=== PATIENT | female | born 1935 | race Caucasian/White ===

== ENCOUNTER 2019-12-08 10:25 | Inpatient (IN) | payer MEDICARE, BC ==
[~2019-12-08] VITALS: Ht 170.2 cm; Wt 80.0 kg
[2019-12-08] VITALS (16 sets, daily range): BP systolic 103–145; BP diastolic 52–96
[~2019-12-08 10:25] MED LIST: CA C1TAB69 PO; CALC-723 PO; CINN500C7 PO; CYCL1DRO6 EACHEYE; DIGO125T PO; ESOM40CA PO; FLAX1CAP4 PO; LEVO100T46 PO; LOP25T PO; PRED10TA23 PO; RESV250C2 PO; RIVA20TA2 PO; VITA1TAB20 PO; VITC500T PO
[2019-12-08] MEDS ORDERED: normal saline 1000ml 1,000 ML IV ONE (11:42)
[2019-12-08] MEDS ORDERED: APIX5TAB3 PO (11:53)
[2019-12-08] MEDS ORDERED: FURO-149 PO (12:02)
[2019-12-08] MEDS ORDERED: ATOR40TA PO (12:02)
[2019-12-08] MEDS ORDERED: POTA20TA19 PO (12:02)
[2019-12-08 12:05] LABS: CLARITY,URINE SLIGHTLY CLOUDY (Clear); COLOR,URINE YELLOW (Yellow); GLUCOSE, URINE NEGATIVE (Neg); KETONES,URINE NEGATIVE (Neg); LEUKOCYTE ESTERASE ,URINE TRACE (Neg); NITRITES, URINE NEGATIVE (Neg); OCCULT BLOOD,URINE TRACE-INTACT (Neg); PROTEIN,URINE NEGATIVE (Neg); UROBILINOGEN,URINE 0.2 E.U/dL (0.2-1.0)
[2019-12-08 12:05] LABS: BASOPHILS % (AUTO) 0.4 % (0-1); EOSINOPHILS # (AUTO) 0.2 X10'3 (0-0.9); EOSINOPHILS % (AUTO) 2.4 % (0-6); HEMATOCRIT 43.7 % (35.0-45.0); HEMOGLOBIN 14.7 g/dl (12.0-16.0); LYMPHOCYTES # (AUTO) 1.2 X10'3 (1.1-4.8); LYMPHOCYTES % (AUTO) 18.5 % (21-51); MEAN CORPUSCULAR HEMOGLOBIN 34.2 PG (27.0-31.0); MEAN CORPUSCULAR HGB CONC 33.7 g/dL (33.0-36.5); MEAN CORPUSCULAR VOLUME 101.7 FL (78-98); MONOCYTES # (AUTO) 0.6 X10'3 (0-0.9); MONOCYTES % (AUTO) 9.4 % (2-12); NEUTROPHILS # (AUTO) 4.4 X10'3 (1.8-7.7); NEUTROPHILS % (AUTO) 69.3 % (42-75); PLATELET COUNT 149 X10'3 (140-440); RED CELL DISTRIBUTION WIDTH 13.9 % (11.5-14.5); WHITE BLOOD COUNT 6.4 X10'3 (4.5-11.0)
[2019-12-08 12:07] LABS: UA COLLECTION TYPE CLN CATCH MIDSTREAM
[2019-12-08 12:12] LABS: MUCUS STRANDS FEW /LPF (Neg)
[2019-12-08 12:14] LABS: BACTERIA,URINE 1+ /HPF (Neg); SQUAMOUS EPITHELIAL CELL,UR MODERATE /LPF (FEW); WBC CLUMPS,URINE FEW /HPF (NEGATIVE)
[2019-12-08 12:14] LABS: PARTIAL THROMBOPLASTIN TIME 30 SECONDS (22-32)
[2019-12-08] MEDS ORDERED: CHOL100025 PO (12:15)
[2019-12-08] MEDS ORDERED: MAGN400C PO (12:15)
[2019-12-08] MEDS ORDERED: MULT-1074 PO (12:15)
[2019-12-08 12:16] LABS: ALANINE AMINOTRANSFERASE 26 U/L (12-78); ALBUMIN 3.7 G/DL (3.4-5.0); ALBUMIN/GLOBULIN RATIO 1.1 (1.1-1.5); ALKALINE PHOSPHATASE 94 IU/L (46-116); ANION GAP 9 (8-16); ASPARTATE AMINO TRANSFERASE 27 U/L (10-37); BILIRUBIN,TOTAL 0.7 MG/DL (0.1-1.0); BLOOD UREA NITROGEN 27 MG/DL (7-18); BUN/CREATININE RATIO 26.7 (6.6-38.0); CHLORIDE 107 MMOL/L (99-107); CREATININE 1.01 MG/DL (0.40-0.90); GLUCOSE 104 MG/DL (70-104); POTASSIUM 4.5 MMOL/L (3.5-5.1); SODIUM 143 MMOL/L (135-145); TOTAL PROTEIN 7.1 G/DL (6.4-8.2); eGFR 52 ML/MIN
[2019-12-08] MEDS ORDERED: ondansetron/PF 4mg/2ml inj IV PRN (13:50)
[2019-12-08] MEDS ORDERED: potassium Cl 20 mEq SR tablet PO PRN ×2 (13:50)
[2019-12-08] MEDS ORDERED: HYDROcodone/acetaminophen 5mg/325mg tablet PO PRN (13:50)
[2019-12-08] MEDS ORDERED: HYDROcodone/acetaminophen 10/325mg tab PO PRN (13:50)
[2019-12-08] MEDS ORDERED: diphenhydrAMINE 25mg capsule PO PRN (13:50)
[2019-12-08] MEDS ORDERED: potassium CL 10mEq/100ml bag 100 ML IV PRN ×2 (13:50)
[2019-12-08] MEDS ORDERED: magnesium 2GM in 50ml NS 50 ML IV PRN (13:50)
[2019-12-08] MEDS ORDERED: magnesium 4gm in 100ml NS 100 ML IV PRN (13:50)
[2019-12-08] MEDS ORDERED: acetaminophen 325mg tablet PO PRN ×2 (13:50)
[2019-12-08] MEDS ORDERED: magnesium Cl slow-release 64mg tablet PO PRN (13:50)
[2019-12-08] MEDS ORDERED: magnesium hydroxide 30ml (MOM) UD suspension PO PRN (13:50)
[2019-12-08] MEDS ORDERED: morphine 2 MG/ML inj. syringe IV PRN ×2 (13:50)
[2019-12-08] MEDS ORDERED: ipratropium/albuterol 3ml nebule NEB PRN (13:50)
[2019-12-08] MEDS ORDERED: acetaminophen 650mg rectal suppository RC PRN (13:50)
[2019-12-08] MEDS ORDERED: mag hydrox/Alum hydrox/simeth 30ml oral suspension PO PRN (13:50)
[2019-12-08] MEDS ORDERED: bisacodyl 10mg suppository rectal RC PRN (13:50)
[2019-12-08] MEDS ORDERED: iohexol 350MG/ML 100ml bottle IV ONE (14:00)
[2019-12-08] MEDS: ipratropium/albuterol 3ml nebule NEB SCH ×2 (14:00→20:49)
[2019-12-08 14:30] LABS: HEMOGLOBIN A1C 6.3 % (4.5-6.2)
[2019-12-08] MEDS: normal saline 1000ml 1,000 ML IV SCH (14:35)
[2019-12-08] MEDS: levoFLOXACIN-Levaquin 750MG/D5 150 ML IV SCH (14:35)
[2019-12-08] MEDS ORDERED: midazolam 2 mg/2 ml injection ONE (14:42)
[2019-12-08] MEDS ORDERED: fentaNYL/PF 50MCG/1 ML 2ML syringe ONE (14:43)
--- NOTE | 2019-12-08 15:45 | NUR ---
Patient arrived on unit, was able to ambulate to bed with minimal assitance. Chest tube hooked up to suction at 20 per order. Chest tube dressing clean, dry and intact in left chest. VSS except HR 130s/140s, patient on 2L NC, alert and oriented, at bedside. Will continue to monitor
[2019-12-08] MEDS ORDERED: diltiazem 5mg/ml 5ml inj. IV ONE (16:00)
[2019-12-08] MEDS: diltiazem-NS 100mg/100ml 100 ML IV SCH (16:53)
--- NOTE | 2019-12-08 18:19 | NUR ---
Problems reprioritized. Patient report given, questions answered & plan of care reviewed with NEIL Jesus.
[2019-12-08] MEDS: K and/or MAG REPLACEMENT MC SCH (20:00)
[2019-12-08] MEDS: cycloSPORINE 0.05% ophthalmic emulsion EACHEYE SCH (20:29)
[2019-12-08] MEDS: metoprolol tartrate 25mg tablet PO SCH (20:31)
[2019-12-08] MEDS: furosemide 40mg tablet PO SCH (20:31)
[2019-12-08] MEDS ORDERED: temazepam 15mg capsule PO PRN (21:00)
[2019-12-09] VITALS (13 sets, daily range): BP systolic 92–140; BP diastolic 44–83
[2019-12-09] MEDS: ipratropium/albuterol 3ml nebule NEB SCH ×4 (02:00→20:36)
[2019-12-09 05:22] LABS: BASOPHILS % (AUTO) 0.3 % (0-1); EOSINOPHILS # (AUTO) 0.1 X10'3 (0-0.9); EOSINOPHILS % (AUTO) 1.6 % (0-6); HEMATOCRIT 41.2 % (35.0-45.0); HEMOGLOBIN 13.8 g/dl (12.0-16.0); LYMPHOCYTES # (AUTO) 1.2 X10'3 (1.1-4.8); LYMPHOCYTES % (AUTO) 18.1 % (21-51); MEAN CORPUSCULAR HEMOGLOBIN 33.8 PG (27.0-31.0); MEAN CORPUSCULAR HGB CONC 33.4 g/dL (33.0-36.5); MEAN CORPUSCULAR VOLUME 101.3 FL (78-98); MEAN PLATELET VOLUME 8.6 FL (7.4-10.4); MONOCYTES # (AUTO) 0.6 X10'3 (0-0.9); MONOCYTES % (AUTO) 9.1 % (2-12); NEUTROPHILS # (AUTO) 4.8 X10'3 (1.8-7.7); NEUTROPHILS % (AUTO) 70.9 % (42-75); PLATELET COUNT 146 X10'3 (140-440); RED BLOOD COUNT 4.07 X10'6 (4.20-5.60); RED CELL DISTRIBUTION WIDTH 14.3 % (11.5-14.5); WHITE BLOOD COUNT 6.8 X10'3 (4.5-11.0)
[2019-12-09 05:31] LABS: ALANINE AMINOTRANSFERASE 18 U/L (12-78); ALBUMIN 3.3 G/DL (3.4-5.0); ALKALINE PHOSPHATASE 82 IU/L (46-116); ANION GAP 7 (8-16); ASPARTATE AMINO TRANSFERASE 24 U/L (10-37); BILIRUBIN,TOTAL 0.7 MG/DL (0.1-1.0); BLOOD UREA NITROGEN 22 MG/DL (7-18); BUN/CREATININE RATIO 23.4 (6.6-38.0); CALCIUM 8.8 MG/DL (8.5-10.1); CHLORIDE 108 MMOL/L (99-107); CHOL/HDL RATIO 2.4 (0.00-4.99); CHOLESTEROL 121 MG/DL (0-200); CREATININE 0.94 MG/DL (0.40-0.90); GLUCOSE 95 MG/DL (70-104); HDL CHOLESTEROL 50 MG/DL (35-60); LDL CHOLESTEROL 65 MG/DL (50-100); PHOSPHORUS 3.9 MG/DL (2.3-4.5); POTASSIUM 3.8 MMOL/L (3.5-5.1); SODIUM 142 MMOL/L (135-145); TOTAL CARBON DIOXIDE 26.6 MMOL/L (24-32); TOTAL PROTEIN 6.7 G/DL (6.4-8.2); TRIGLYCERIDES 61 MG/DL (20-135); eGFR 57 ML/MIN
--- NOTE | 2019-12-09 06:00 | NUR ---
Patient in room PCU 3014. I have received report from Ann Marie TREJO and had the opportunity to ask questions and assume patient care.
--- NOTE | 2019-12-09 06:30 | NUR ---
Problems reprioritized. Patient report given, questions answered & plan of care reviewed with Linda TREJO.
[2019-12-09] MEDS ORDERED: RESVERATROL 500 MG PO SCH (08:00)
[2019-12-09] MEDS: K and/or MAG REPLACEMENT MC SCH ×2 (08:00→19:07)
[2019-12-09] MEDS: levoFLOXACIN-Levaquin 750MG/D5 150 ML IV SCH (08:37)
[2019-12-09] MEDS: ascorbic acid 500mg tablet PO SCH (08:37)
[2019-12-09] MEDS: vitamin B comp w/Vit. C tab 1 TAB TABLET PO SCH (08:37)
[2019-12-09] MEDS: calcium carbonate/vitamin D3 tablet PO SCH (08:38)
[2019-12-09] MEDS: multivitamins, therapeutics tablet PO SCH (08:38)
[2019-12-09] MEDS: atorvastatin 20mg tablet PO SCH (08:38)
[2019-12-09] MEDS: furosemide 40mg tablet PO SCH ×2 (08:38→19:20)
[2019-12-09] MEDS: vitamin D (cholecalciferol) 1,000 unit tablet PO SCH (08:38)
[2019-12-09] MEDS: levoTHYROXINE 100mcg tablet PO SCH (08:39)
[2019-12-09] MEDS: metoprolol tartrate 25mg tablet PO SCH ×2 (08:40→19:20)
[2019-12-09] MEDS: cycloSPORINE 0.05% ophthalmic emulsion EACHEYE SCH ×2 (08:40→19:20)
[2019-12-09] MEDS: normal saline 1000ml 1,000 ML IV SCH (08:50)
[2019-12-09] MEDS: diltiazem-NS 100mg/100ml 100 ML IV SCH (09:04)
[2019-12-09] MEDS: apixaban 5mg tablet PO SCH ×2 (10:58→19:20)
--- NOTE | 2019-12-09 18:19 | NUR ---
Problems reprioritized. Patient report given, questions answered & plan of care reviewed with Ann Marie TREJO.
[2019-12-09] MEDS: lactobacillus rhamnosus 10,000 MMU CELLS/CAPSULE PO SCH (19:20)
[2019-12-09] MEDS: sacubitril/valsartan 24mg-26mg tablet PO SCH (19:21)
[2019-12-10] VITALS (15 sets, daily range): BP systolic 91–121; BP diastolic 37–79
[2019-12-10] MEDS: ipratropium/albuterol 3ml nebule NEB SCH ×4 (02:00→20:09)
[2019-12-10] MEDS: normal saline 1000ml 1,000 ML IV SCH (05:49)
--- NOTE | 2019-12-10 06:02 | NUR ---
Problems reprioritized. Patient report given, questions answered & plan of care reviewed with Linda TREJO.
--- NOTE | 2019-12-10 06:04 | NUR ---
Patient in room PCU 3014. I have received report from Ann Marie TREJO and had the opportunity to ask questions and assume patient care.
[2019-12-10 06:47] LABS: BASOPHILS % (AUTO) 0.5 % (0-1); EOSINOPHILS # (AUTO) 0.2 X10'3 (0-0.9); EOSINOPHILS % (AUTO) 3.3 % (0-6); HEMATOCRIT 40.8 % (35.0-45.0); HEMOGLOBIN 13.8 g/dl (12.0-16.0); LYMPHOCYTES % (AUTO) 16.8 % (21-51); MEAN CORPUSCULAR HEMOGLOBIN 34.3 PG (27.0-31.0); MEAN CORPUSCULAR HGB CONC 33.8 g/dL (33.0-36.5); MEAN CORPUSCULAR VOLUME 101.2 FL (78-98); MEAN PLATELET VOLUME 8.5 FL (7.4-10.4); MONOCYTES # (AUTO) 0.6 X10'3 (0-0.9); MONOCYTES % (AUTO) 10.2 % (2-12); NEUTROPHILS # (AUTO) 4.1 X10'3 (1.8-7.7); NEUTROPHILS % (AUTO) 69.2 % (42-75); PLATELET COUNT 140 X10'3 (140-440); RED BLOOD COUNT 4.03 X10'6 (4.20-5.60); RED CELL DISTRIBUTION WIDTH 13.9 % (11.5-14.5); WHITE BLOOD COUNT 5.9 X10'3 (4.5-11.0)
--- NOTE | 2019-12-10 06:55 | NUR ---
Clamped chest tube for 0900 CXR
[2019-12-10 07:07] LABS: ALANINE AMINOTRANSFERASE 22 U/L (12-78); ALBUMIN 3.3 G/DL (3.4-5.0); ALKALINE PHOSPHATASE 81 IU/L (46-116); ANION GAP 8 (8-16); ASPARTATE AMINO TRANSFERASE 22 U/L (10-37); BILIRUBIN,TOTAL 0.9 MG/DL (0.1-1.0); BLOOD UREA NITROGEN 20 MG/DL (7-18); BUN/CREATININE RATIO 21.5 (6.6-38.0); CALCIUM 8.2 MG/DL (8.5-10.1); CHLORIDE 109 MMOL/L (99-107); CREATININE 0.93 MG/DL (0.40-0.90); GLUCOSE 101 MG/DL (70-104); MAGNESIUM 1.8 MG/DL (1.5-2.4); POTASSIUM 3.6 MMOL/L (3.5-5.1); SODIUM 145 MMOL/L (135-145); TOTAL CARBON DIOXIDE 27.9 MMOL/L (24-32); TOTAL PROTEIN 6.5 G/DL (6.4-8.2); eGFR 58 ML/MIN
[2019-12-10] MEDS: sacubitril/valsartan 24mg-26mg tablet PO SCH ×2 (07:15→19:58)
[2019-12-10] MEDS: atorvastatin 20mg tablet PO SCH (07:16)
[2019-12-10] MEDS: apixaban 5mg tablet PO SCH ×2 (07:16→19:58)
[2019-12-10] MEDS: ascorbic acid 500mg tablet PO SCH (07:16)
[2019-12-10] MEDS: levoTHYROXINE 100mcg tablet PO SCH (07:16)
[2019-12-10] MEDS: vitamin D (cholecalciferol) 1,000 unit tablet PO SCH (07:16)
[2019-12-10] MEDS: furosemide 40mg tablet PO SCH ×2 (07:16→19:58)
[2019-12-10] MEDS: calcium carbonate/vitamin D3 tablet PO SCH (07:16)
[2019-12-10] MEDS: metoprolol tartrate 25mg tablet PO SCH ×2 (07:16→19:57)
[2019-12-10] MEDS: vitamin B comp w/Vit. C tab 1 TAB TABLET PO SCH (07:16)
[2019-12-10] MEDS: lactobacillus rhamnosus 10,000 MMU CELLS/CAPSULE PO SCH ×2 (07:16→19:58)
[2019-12-10] MEDS: multivitamins, therapeutics tablet PO SCH (07:16)
[2019-12-10] MEDS: cycloSPORINE 0.05% ophthalmic emulsion EACHEYE SCH ×2 (07:17→19:58)
[2019-12-10] MEDS: K and/or MAG REPLACEMENT MC SCH ×2 (07:22→20:04)
[2019-12-10] MEDS: diltiazem-NS 100mg/100ml 100 ML IV SCH (07:25)
[2019-12-10] MEDS ORDERED: levoFLOXACIN 750MG TABLET PO SCH (08:00)
--- NOTE | 2019-12-10 12:30 | NUR ---
Chest tube was removed by IR, clean dry dressing in place, no drainage noted in the container, will continue to monitor.
--- NOTE | 2019-12-10 18:22 | NUR ---
Patient in room PCU 3014. I have received report from Linda TREJO and had the opportunity to ask questions and assume patient care.
--- NOTE | 2019-12-10 18:51 | NUR ---
Problems reprioritized. Patient report given, questions answered & plan of care reviewed with Olman TREJO.
[2019-12-11] VITALS: BP 119/63
[2019-12-11] MEDS: normal saline 1000ml 1,000 ML IV SCH ×2 (01:49→07:31)
[2019-12-11 02:00] VITALS: BP 119/63
[2019-12-11] MEDS: ipratropium/albuterol 3ml nebule NEB SCH ×2 (03:04→06:52)
[2019-12-11 04:00] VITALS: BP 104/58
[2019-12-11] MEDS: diltiazem-NS 100mg/100ml 100 ML IV SCH (04:15)
[2019-12-11 06:00] VITALS: BP 114/49
--- NOTE | 2019-12-11 06:28 | NUR ---
Problems reprioritized. Patient report given, questions answered & plan of care reviewed with Linda TREJO.
[2019-12-11 06:38] LABS: BASOPHILS % (AUTO) 0.2 % (0-1); EOSINOPHILS # (AUTO) 0.3 X10'3 (0-0.9); EOSINOPHILS % (AUTO) 4.8 % (0-6); HEMOGLOBIN 13.7 g/dl (12.0-16.0); LYMPHOCYTES % (AUTO) 17.2 % (21-51); MEAN CORPUSCULAR HEMOGLOBIN 34.6 PG (27.0-31.0); MEAN CORPUSCULAR HGB CONC 34.2 g/dL (33.0-36.5); MEAN PLATELET VOLUME 8.3 FL (7.4-10.4); MONOCYTES # (AUTO) 0.6 X10'3 (0-0.9); MONOCYTES % (AUTO) 10.8 % (2-12); NEUTROPHILS # (AUTO) 3.9 X10'3 (1.8-7.7); PLATELET COUNT 142 X10'3 (140-440); RED BLOOD COUNT 3.96 X10'6 (4.20-5.60); RED CELL DISTRIBUTION WIDTH 14.2 % (11.5-14.5); WHITE BLOOD COUNT 5.8 X10'3 (4.5-11.0)
[2019-12-11 06:48] LABS: ALANINE AMINOTRANSFERASE 21 U/L (12-78); ALKALINE PHOSPHATASE 77 IU/L (46-116); ANION GAP 9 (8-16); ASPARTATE AMINO TRANSFERASE 21 U/L (10-37); BILIRUBIN,TOTAL 0.8 MG/DL (0.1-1.0); BLOOD UREA NITROGEN 15 MG/DL (7-18); BUN/CREATININE RATIO 18.8 (6.6-38.0); CALCIUM 8.1 MG/DL (8.5-10.1); CHLORIDE 110 MMOL/L (99-107); GLUCOSE 101 MG/DL (70-104); MAGNESIUM 1.7 MG/DL (1.5-2.4); PHOSPHORUS 3.9 MG/DL (2.3-4.5); POTASSIUM 3.3 MMOL/L (3.5-5.1); SODIUM 144 MMOL/L (135-145); TOTAL CARBON DIOXIDE 25.3 MMOL/L (24-32); TOTAL PROTEIN 6.1 G/DL (6.4-8.2); eGFR 69 ML/MIN
[2019-12-11] MEDS: levoTHYROXINE 100mcg tablet PO SCH (07:24)
[2019-12-11] MEDS: vitamin D (cholecalciferol) 1,000 unit tablet PO SCH (07:25)
[2019-12-11] MEDS: ascorbic acid 500mg tablet PO SCH (07:25)
[2019-12-11] MEDS: sacubitril/valsartan 24mg-26mg tablet PO SCH (07:25)
[2019-12-11] MEDS: calcium carbonate/vitamin D3 tablet PO SCH (07:26)
[2019-12-11] MEDS: lactobacillus rhamnosus 10,000 MMU CELLS/CAPSULE PO SCH (07:26)
[2019-12-11] MEDS: apixaban 5mg tablet PO SCH (07:26)
[2019-12-11] MEDS: cycloSPORINE 0.05% ophthalmic emulsion EACHEYE SCH (07:26)
[2019-12-11] MEDS: multivitamins, therapeutics tablet PO SCH (07:26)
[2019-12-11] MEDS: furosemide 40mg tablet PO SCH (07:26)
[2019-12-11] MEDS: atorvastatin 20mg tablet PO SCH (07:26)
[2019-12-11] MEDS: metoprolol tartrate 25mg tablet PO SCH (07:26)
[2019-12-11] MEDS: vitamin B comp w/Vit. C tab 1 TAB TABLET PO SCH (07:26)
[2019-12-11] MEDS: K and/or MAG REPLACEMENT MC SCH (07:38)
[2019-12-11] MEDS ORDERED: levoFLOXACIN 750MG TABLET PO SCH (08:00)
[2019-12-11 11:00] VITALS: BP 89/52
[2019-12-11 11:30] LABS: ABG BASE EXCESS 1.9 mmol/L (-2.0-3.0); ABG HCO3 24.8 mmol/L (22.0-26.0); ABG PCO2 (T) 33.8 mmHg (35.0-45.0); ABG PH (T) 7.483 (7.350-7.450); ABG PO2 (T) 67.7 mmHg (83-108); ALLEN'S TEST POSITIVE; FCOHb 0.7 % (0.5-1.5); FMetHb 0.2 % (0.3-1.12); FO2Hb 93.2 % (94-100); TOTAL HEMOGLOBIN 14.4 G/dl (12.0-16.0)
--- NOTE | 2019-12-11 11:38 | NUR ---
promotional table spacer PAGER ID: [phone] MESSAGE: [id number], Juan Nascimento results in. RT recommends pt. go home with incentive spirometer. Eze 1215
[2019-12-11] MEDS ORDERED: SACU1TAB PO (12:11)
[2019-12-11] MEDS ORDERED: LEVO750T46 PO (12:11)
--- NOTE | 2019-12-11 14:20 | NUR ---
Per MD orders, patient clear for discharge home. New prescriptions called in to pharmacy of preference. Discharge packet reviewed with patient and at bedside and all questions answered to patient satisfaction. Discontinued mobil monitoring. Discontinued PIV, cannula intact. Transferred to private vehicle via wheelchair accompanied by aide and . Pt. states she will call to make her own appt.
--- NOTE | 2019-12-14 14:34 | NUR ---
Case Management DC follow up: spoke to pt via telephone. Reports "feeling better" "last night (12/13/19) sleepong on my back, felt pain LLL/back, slept in recliner" "feel better today". "feeling a little stronger". Post pneumothorax/chest tube insertion site no s/s infection. Denies acute CP, emergent general pain, SOB at rest, respiratory distress, NV, dizziness, syncope episodes, abd pain, MASSEY, blurry vision. went over orthostatic hypotension as a precaution/pt compliant. Uses CPAP at night/pt states compliant. Verbalizes understanding of medications and why prescribed. Taking as ordered, no ase noted r/t polypharmacy/new meds. verbalizes understanding of s/s that would warrant 9-11/ER visit for evaluation. Acknowledges importance of scheduling/keeping appointments w/PCP Jonathan/referrals/specialists [facility]. Pt states they will call back when able to schedule pt. Needs met, questions answered at DC. No further questions at this time.
== END 2019-12-11 14:20 | disposition home or self-care (01) | DRG 199 ==
LOC: ER 10:25 → ED HOLD 13:49 → PCU 3S 15:35
PROVIDERS: ADMIT Family Medicine; ATTEND Internal Medicine
PROC: 5A09357 Assistance with Respiratory Ventilation, Less than 24 Consecutive Hours, Continuous Positive Airway Pressure (ICD-10-PCS; principal; 2019-12-08)
PROC: 0W9B30Z Drainage of Left Pleural Cavity with Drainage Device, Percutaneous Approach (ICD-10-PCS; 2019-12-08)
PROC: B32T1ZZ Computerized Tomography (CT Scan) of Left Pulmonary Artery using Low Osmolar Contrast (ICD-10-PCS; 2019-12-08)
PROC: B3201ZZ Computerized Tomography (CT Scan) of Thoracic Aorta using Low Osmolar Contrast (ICD-10-PCS; 2019-12-08)
PROC: B32S1ZZ Computerized Tomography (CT Scan) of Right Pulmonary Artery using Low Osmolar Contrast (ICD-10-PCS; 2019-12-08)
PROC: 5A09357 Assistance with Respiratory Ventilation, Less than 24 Consecutive Hours, Continuous Positive Airway Pressure (ICD-10-PCS; 2019-12-09)
PROC: 5A09357 Assistance with Respiratory Ventilation, Less than 24 Consecutive Hours, Continuous Positive Airway Pressure (ICD-10-PCS; 2019-12-11)
DX: J93.83 Other pneumothorax (principal); I50.23 Acute on chronic systolic (congestive) heart failure; I48.20 Chronic atrial fibrillation, unspecified; I11.0 Hypertensive heart disease with heart failure; E78.5 Hyperlipidemia, unspecified; E04.9 Nontoxic goiter, unspecified; J20.9 Acute bronchitis, unspecified; K21.9 Gastro-esophageal reflux disease without esophagitis; E89.0 Postprocedural hypothyroidism; G47.33 Obstructive sleep apnea (adult) (pediatric); Z79.01 Long term (current) use of anticoagulants; Z79.890 Hormone replacement therapy; Z79.899 Other long term (current) drug therapy; Z87.891 Personal history of nicotine dependence; Z90.710 Acquired absence of both cervix and uterus
CPT/HCPCS: 32557; 36415; 36600; 71045; 71046; 71275; 80053; 80061; 81001; 82803; 83036; 83605; 83735; 84100; 84443; 85018; 85025; 85610; 85730; 87040; 87081; 87088; 93005; 93306; 94640; 94760; 97110; 97112; 97116; 97161; 97530; 99285; G0378; J1956; J2250; J3010; J3490; J7030; Q9967